=== PATIENT | female | born 1965 | race Asian ===

== ENCOUNTER → 2016-11-10 | Outpatient (CLI) | payer OTHER ==
[~2016-11-10] MED LIST: None per pt
== END | disposition home or self-care (01) ==
LOC: ROC 08:59
PROVIDERS: ATTEND Radiology Radiation Oncology
DX: C76.42 Malignant neoplasm of left upper limb (principal)
CPT/HCPCS: 99214; G0463

== ENCOUNTER → 2017-01-12 | Outpatient (CLI) | payer OTHER | END | disposition home or self-care (01) | LOC: ROC 12:48 | PROVIDERS: ATTEND Radiology Radiation Oncology | DX: C76.42 Malignant neoplasm of left upper limb (principal); Z92.3 Personal history of irradiation | CPT/HCPCS: 99212; G0463 ==

== ENCOUNTER → 2017-03-20 | Outpatient (CLI) | payer OTHER | END | disposition home or self-care (01) | LOC: ROC 09:04 | PROVIDERS: ATTEND Radiology Radiation Oncology | DX: C49.12 Malignant neoplasm of connective and soft tissue of left upper limb, including shoulder (principal); Z79.82 Long term (current) use of aspirin; Z92.3 Personal history of irradiation | CPT/HCPCS: 99213; G0463 ==